=== PATIENT | female | born 1980 | race Asian ===

== ENCOUNTER → 2018-04-25 | Outpatient (CLI) | payer BC ==
[~2018-04-25] MED LIST: LORTAB 5/500 501 TAB PO; NAPROSYN500 MG PO; NO HOME MEDICATIONS; PRENATAL1 TA1 PO; PROCARDIA XL90 MG PO; SINGULAIR10 MG PO; XYZAL5 MG PO; [UNRECOGNIZED DRUG - OTHER]
[2018-04-25 13:46] LABS: CALCIUM 9.4 mg/dL (8.4-10.2); CREATININE, serum 0.49 mg/dL (0.52-1.25); MAGNESIUM 1.8 mg/dL (1.6-2.3); POTASSIUM 3.8 mmol/L (3.4-5.0)
== END ==
LOC: ZCOL.LAB 12:23
PROVIDERS: Family Medicine
DX: R25.1 Tremor, unspecified (principal)

== ENCOUNTER → 2018-05-04 | Outpatient (CLI) | payer BC | LOC: COL.RAD 07:28 | DX: R09.89 Other specified symptoms and signs involving the circulatory and respiratory systems (principal); R06.02 Shortness of breath ==

== ENCOUNTER → 2018-06-01 | Outpatient (CLI) | payer BC ==
[2018-06-02 02:39] LABS: FOLATE (FOLIC ACID) 7.8 ng/mL (7.0-31.4)
== END ==
LOC: ZCOL.LAB 15:41
PROVIDERS: Psychiatry & Neurology Neurology
DX: R25.1 Tremor, unspecified (principal)

== ENCOUNTER 2020-01-19 18:22 | Observation (INO) | payer BC ==
[~2020-01-19] VITALS: Ht 157.5 cm; Wt 55.2 kg
[2020-01-19] MEDS ORDERED: BRINTELLIX20 (18:46)
[2020-01-19 19:13] LABS: BASO # 0.1 (0.0-0.2); BASO % 0.9 % (0.0-2.0); EOS # 0.2 (0.0-0.7); EOS % 1.9 % (0-4.0); GRAN # 6.6 (1.4-6.5); GRAN % 66.3 % (42.2-75.2); HEMOGLOBIN 14.6 g/dl (12.5-16.0); LYMPH # 2.5 (1.2-3.4); LYMPH % 24.7 % (20.0-51.0); MEAN CELL VOLUME 90 fl (80.0-100.0); MEAN CORPUSCULAR HEMOGLOBIN 31 pg (27.0-31.0); MEAN CORPUSCULAR HGB CONC 35 g/dl (33.0-37.0); MEAN PLATELET VOLUME 9.3 fl (7.4-10.4); MONO # 0.5 (0.1-0.6); MONO % 5.4 % (1.7-9.3); PLATELET COUNT 371 K/mm3 (130-400); RED BLOOD COUNT 4.68 M/mm3 (4.10-5.30); REDCELL DISTRIBUTION WIDTH-CV 11.3 % (11.5-14.5)
[2020-01-19 19:22] LABS: ALANINE AMINOTRANSFERASE 17 U/L (4-34); ALBUMIN 4.4 gm/dL (3.5-5.0); ALKALINE PHOSPHATASE 65 U/L (50-136); ANION GAP 9 mmol/L (7-16); AST,SGOT 22 U/L (15-37); BILIRUBIN,TOTAL 0.5 mg/dL (0.0-1.0); BLOOD UREA NITROGEN 13 mg/dL (7-17); CALCIUM 9.1 mg/dL (8.4-10.2); CARBON DIOXIDE 25 mmol/L (22-30); CHLORIDE 102 mmol/L (98-107); CREATININE, serum 0.44 (0.52-1.25); GLUCOSE 112 mg/dL (74-106); POTASSIUM 3.9 mmol/L (3.4-5.0); SODIUM 137 mmol/L (137-145); TOTAL PROTEIN 7.2 gm/dL (6.4-8.2)
[2020-01-19 19:25] LABS: C-REACTIVE PROTEIN < 0.5 mg/dL (0.0-0.9)
[2020-01-19 22:22] LABS: ALCOHOL(ethanol),MEDICAL < 10 mg/dL
[2020-01-19 23:18] LABS: COLLECTION METHOD CLEAN CATCH
--- NOTE | 2020-01-19 23:20 | NUR ---
To room 348 from ED via stretched. Oriented to room and policy. Assessment complete. VS stable. A&Ox3. Denies pain/nausea/shortness of breath. Plan of care discussed for this shift to include rn internal medicine, neuro checks, calling for needs. Denies questions/concerns. Call light in reach. WIll monitor.
[2020-01-19 23:23] LABS: MUCOUS Present /lpf; PH 6 (5-8); SQUAMOUS EPITHELIAL 0-2 /hpf; URINE APPEARANCE Clear; URINE BACTERIA None Seen /hpf; URINE BILIRUBIN Negative (NEGATIVE); URINE BLOOD 3+ (NEGATIVE); URINE COLOR Straw; URINE GLUCOSE Negative (NEGATIVE); URINE KETONE Negative (NEGATIVE); URINE LEUKOCYTE ESTERASE Negative (NEGATIVE); URINE NITRATE Negative (NEGATIVE); URINE PROTEIN(semi-quant) Negative (NEGATIVE); URINE UROBILINOGEN Negative (NEGATIVE)
[2020-01-19 23:28] VITALS: BP 144/98; PULSE 81; TEMP 97.7
[2020-01-19 23:30] LABS: TRICYCLIC ANTIDEPRESS URINE NEGATIVE
[2020-01-19 23:43] VITALS: BP 144/98; PULSE 81; TEMP 97.7
[2020-01-19] MEDS ORDERED: INDERAL LA 80MG80 MG PO (23:53)
[2020-01-20 03:37] VITALS: BP 129/87; PULSE 74; TEMP 98.1
--- NOTE | 2020-01-20 05:00 | NUR ---
Rested well this shift. Denied pain/nausea/shortness of breath. VS remained stable. Neuros WNL. Still with ataxia. Still encouraged to call for questions/concerns/getting up out of bed. Verbalizes understanding. Will monitor.
[2020-01-20 07:34] VITALS: BP 132/88; PULSE 70; TEMP 97.8
--- NOTE | 2020-01-20 11:00 | NUR ---
[employer] met with patient and patient's , Sagar (ph#[phone]) to discuss discharge planning. Patient lives in [place] with her and their two children ages 4 and 10[address] Huntley for primary care and obtains medications from [facility]. Patient does not use any DME and is independent with [facility]. Patient does not have Advance Directives and plans to return home at discharge. SW will continue to follow as needed.
[2020-01-20 12:07] VITALS: BP 123/77; PULSE 86; TEMP 98.1
[2020-01-20 16:29] VITALS: BP 133/76; PULSE 84; TEMP 98.1
--- NOTE | 2020-01-20 17:00 | NUR ---
Discharge teaching completed. Discussed follow up appointment, outpatient labs, and outpatient radiology study. Patient verbalized understanding and denied needs. Patient escorted to ED entrance where she entered a private vehicle.
== END 2020-01-20 17:00 | disposition home or self-care (01) ==
LOC: COL.ER 18:22 → SURG 22:35
PROVIDERS: Emergency Medicine; ADMIT Hospitalist
DX: R42 Dizziness and giddiness (principal); R51.9 Headache, unspecified; R26.0 Ataxic gait; I10 Essential (primary) hypertension; G25.0 Essential tremor; F32.9 Major depressive disorder, single episode, unspecified; Z91.14 Patient's other noncompliance with medication regimen; Z79.899 Other long term (current) drug therapy; Z98.51 Tubal ligation status; Z23 Encounter for immunization
CPT/HCPCS: A9585; J1650; J2060; J2405; J7030; Q9967

== ENCOUNTER → 2020-01-28 | Outpatient (CLI) | payer BC ==
[~2020-01-28] MED LIST changes: +BRINTELLIX20; +INDERAL LA 80MG80 MG PO
[2020-01-28 18:35] LABS: TROPONIN-I < 0.012 ng/mL (0.000-0.035)
[2020-01-28 18:53] LABS: THYROID STIMULATING HORMONE 0.735 uIU/mL (0.465-4.680)
== END ==
LOC: COL.LAB 17:48
PROVIDERS: Family Medicine
DX: R07.89 Other chest pain (principal)

== ENCOUNTER → 2021-11-22 | Outpatient (CLI) | payer BC | LOC: MC.RAD 13:48 | DX: Z12.31 Encounter for screening mammogram for malignant neoplasm of breast (principal) ==